=== PATIENT | female | born 1950 | race Caucasian/White ===

== ENCOUNTER → 2021-06-22 | Outpatient (CLI) | payer MEDICARE | END | disposition home or self-care (01) | LOC: CFH 13:23 | PROVIDERS: ATTEND Internal Medicine Cardiovascular Disease | DX: I35.8 Other nonrheumatic aortic valve disorders (principal); R00.2 Palpitations; I45.10 Unspecified right bundle-branch block | CPT/HCPCS: 93306; 93356 ==